=== PATIENT | male | born 1960 | race African-American/Black ===

== ENCOUNTER 2018-07-08 04:58 | Emergency (ER) | payer OTHER ==
--- NOTE | 2018-07-08 05:46 | PDOC ---
History of Present Illness - General Chief Complaint: Syncope/Near Syncope Stated Complaint: REHAB Time Seen by Provider: 07/08/18 05:12 History Source: Patient, EMS Exam Limitations: No Limitations - History of Present Illness Initial Comments: HPI: 58 y/o male BIBEMS to [facility] ER from outside of [facility]. EMS crew reports attempting to take the pt to [facility] but was refused by hospital security, who reported the pt was just forcibly discharged after urinating into the sink. Pt states he is from [place] and traveled to [place] for Detox at [facility] on urging from his parole office. Initially stated that he used heroin several days ago and methadone 2 days ago. Later, he endorsed using both heroin and methadone yesterday. On arrival, the pt requests methadone and a shot in knee for pain. States he was told he had a torn ligament at another hospital a few days ago. Was given knee brace. Three hospital wristbands in place. One from visit at unknown facility on 2018. Two bands from [facility] dated 07/07/2018. Social Hx: - EtoH: Last drank a few days ago - Tobacco: Daily smoker - Street Drugs: Heroin and Methadone Medical Hx: - Polysubstance abuse Review of Systems: In addition to that documented in the HPI above, the additional ROS was obtained : Constitutional: Denies fevers or chills ENMT: Denies sore throat CV: Denies chest pain Resp: Denies SOB GI: Denies vomiting or diarrhea : Denies dysuria, hematuria, or urinary frequency Physical Examination: Constitutional: Adult male in no acute distress or obvious discomfort. Found semi-fowlers on hospital bed. Alert and oriented x4. Answered all questions appropriately and completely. Speech was non-labored, non-pressured. Appeared sleepy during interview. Yawned several times. Head: Normocephalic. No obvious external signs of trauma. Eyes: PERRL. EOMI. Sclerae white. Conjunctiva moist and not injected. Ears: Hearing grossly intact. Nose: No nasal discharge. Neck: Supple, trachea is midline. Cardiovascular / Chest: Regular rate and regular rhythm. No murmur, rubs, clicks , or gallops. Peripheral pulses: radial pulses full. Respiratory: Breathing unlabored. Equal chest rise and fall. Clear to auscultation bilaterally. No stridor, no wheezing, no rhonchi. Gastrointestinal: abdomen is soft, non-tender, non-distended. Neuro: Alert and oriented. Moving all four extremities spontaneously. MSK: R knee tender along lateral aspect without grimace, rebound, or garding. Knee was immobilized with loose velcro wrap. Skin: Warm, dry, and intact. Psych: Affect: appropriate. Mood: normal. MDM: *Reviewed vital signs, nursing notes, and prior visit documentation (if available). 58 y/o male presenting from outside another hospital requesting methadone and knee injection. Endorses recent methadone ingestion and heroin abuse. Exact time unknown. States he is interested in pursuing opiate detox. Will obtain EKG , CBC, CMP, and UTox for medical clearance. Inverted T waves noted on EKG. No prior EKG available for comparison. Pt denies chest pain or SOB. Low suspicion for ACS. Will order troponin for further evaluation. Troponin negative. Low suspicion for ACS. Pt signed out to resident Dr. Young after he was verbally appraised of the pt s HPI, current ED course, and plan of management. Will f/u on pending UTox. Anticipate discharge to [facility] for inpatient detox. Pierre Estrella M.D., PGY1 Emergency Medicine Resident Past History - Past Medical History Allergies/Adverse Reactions: Allergies Allergy/AdvReac Type Severity Reaction Status Date / Time No Known Allergies Allergy Verified 07/08/18 05:18 Home Medications: Ambulatory Orders Ranitidine [Zantac -] 150 mg PO DAILY 11/08/13 metFORMIN HCL [Glucophage -] 500 mg PO BID 11/08/13 Anemia: No Asthma: No Cancer: No Cardiac Disorders: No CVA: No COPD: No CHF: No Dementia: No Diabetes: Yes GI Disorders: Yes Disorders: No HTN: No Hypercholesterolemia: No Kidney Stones: No Liver Disease: No Seizures: No Thyroid Disease: No - Surgical History Orthopedic Surgery: Yes (rotator cuff ) - Immunization History Immunization Up to Date: Yes - Suicide/Smoking/Psychosocial Hx Smoking History: Unknown if ever smoked Have you smoked in the past 12 months: Yes Number of Cigarettes Smoked Daily: 20 Cigars Per Day: 0 'Breaking Loose' booklet given: 11/07/13 Hx Alcohol Use: No Drug/Substance Use Hx: Yes (HEROIN) Substance Use Type: Alcohol Hx Substance Use Treatment: Yes *Physical Exam - Vital Signs Last Vital Signs Temp Pulse Resp BP Pulse Ox 98.2 F 83 17 132/53 L 95 07/08/18 05:19 07/08/18 05:19 07/08/18 05:19 07/08/18 05:19 07/08/18 05:19 ED Treatment Course - LABORATORY CBC & Chemistry Diagram: 07/08/18 05:45 07/08/18 05:45 *DC/Admit/Observation/Transfer Diagnosis at time of Disposition: Heroin abuse, Methadone use - Discharge Dispostion Condition at time of disposition: Stable - Referrals - Patient Instructions - Post Discharge Activity
[2018-07-08 05:57] LABS: BASO % 0.9 % (0-2.0); EOS % 3.6 % (0-4.5); HEMATOCRIT 32.6 % (35.4-49); HEMOGLOBIN 10.7 GM/dL (11.7-16.9); MCH 27.6 pg (25.7-33.7); MCHC 32.8 g/dl (32.0-35.9); MEAN CELL VOLUME 84.1 fl (80-96); MEAN PLT VOLUME 9.4 fl (7.5-11.1); MONO % 8.6 % (3.8-10.2); NEUT % 68.9 % (42.8-82.8); PLATELET COUNT 155 K/MM3 (134-434); RBC 3.87 M/mm3 (4.00-5.60); WHITE BLOOD COUNT 9.4 K/mm3 (4.0-10.0)
[2018-07-08 06:14] VITALS: BP 132/53; PULSE 83; TEMP 98.2; BMI 30.7
[2018-07-08 06:29] LABS: ALBUMIN 3.4 g/dl (3.4-5.0); ALK PHOS 58 U/L (45-117); ANION GAP 4 MMOL/L (8-16); BILIRUBIN,TOTAL 0.7 mg/dL (0.2-1); BLOOD UREA NITROGEN 18 mg/dL (7-18); CALCIUM 8.6 mg/dL (8.5-10.1); CHLORIDE 109 mmol/L (98-107); CO2 29 mmol/L (21-32); CREATININE 0.6 mg/dL (0.55-1.3); GLUCOSE,RANDOM 137 mg/dL (74-106); POTASSIUM 3.4 mmol/L (3.5-5.1); SGOT/AST 27 U/L (15-37); SGPT/ALT 21 U/L (13-61); SODIUM 142 mmol/L (136-145); TOT PROT 6.7 g/dl (6.4-8.2)
--- NOTE | 2018-07-08 06:48 | PDOC ---
Documentation entered by Rodriguez Wright SCRIBE, acting as scribe for Aline Garcia DO. Aline Garcia DO: This documentation has been prepared by the Kyle pablo Nirvannie, SCRIBE, under my direction and personally reviewed by me in its entirety. I confirm that the documentation accurately reflects all work, treatment, procedures, and medical decision making performed by me. Attending Attestation - Resident Resident Name: Pierre Estrella - ED Attending Attestation I have performed the following: I have examined & evaluated the patient, The case was reviewed & discussed with the resident, I agree w/resident's findings & plan - HPI HPI: 07/08/18 05:42 The patient is a 58 year old male, with a significant past medical history of Heroin Abuse, HTN, DM, Schizophrenia, and Depression, who presents to the emergency department with, right knee pain. While in the ED, patient requests Methadone and an injection to his right knee for a ? torn ligament (found on MRI at another hospital). Patient notes he wants to go to detox. He denies any recent fevers, chills, headache or dizziness. He denies any recent nausea, vomit, diarrhea or constipation. He denies any recent chest pain or shortness of breath. He denies any recent dysuria, frequency, urgency or hematuria. Allergies: NKDA - Physicial Exam PE: 07/08/18 05:42 Agree with resident exam. - Medical Decision Making 07/08/18 06:43 As such as follows 58-year-old male with a history of substance abuse requesting methadone and a cortisone injection for his knee Patient will be cleared and sent over to our [facility] for further evaluation Labs pending, signed out to dayshift
--- NOTE | 2018-07-08 07:06 | PDOC ---
*Physical Exam - Vital Signs Last Vital Signs Temp Pulse Resp BP Pulse Ox 98.2 F 83 17 132/53 L 95 07/08/18 05:19 07/08/18 05:19 07/08/18 05:19 07/08/18 05:19 07/08/18 05:19 ED Treatment Course - LABORATORY CBC & Chemistry Diagram: 07/08/18 05:45 07/08/18 05:45 - ADDITIONAL ORDERS Additional order review: Laboratory Results 07/08/18 05:45 Sodium 142 Potassium 3.4 L Chloride 109 H Carbon Dioxide 29 Anion Gap 4 L BUN 18 Creatinine 0.6 Est GFR (CKD-EPI)AfAm 129.36 Est GFR (CKD-EPI)NonAf 111.61 Random Glucose 137 H Calcium 8.6 Total Bilirubin 0.7 AST 27 ALT 21 Alkaline Phosphatase 58 Troponin I < 0.02 Total Protein 6.7 Albumin 3.4 Alcohol, Quantitative < 3.0 07/08/18 05:45 RBC 3.87 L MCV 84.1 MCHC 32.8 RDW 15.0 MPV 9.4 D Neutrophils % 68.9 D Lymphocytes % 18.0 D Monocytes % 8.6 Eosinophils % 3.6 Basophils % 0.9 Medical Decision Making - Medical Decision Making 07/08/18 07:05 Sign out received from Dr. Estrella. 07/08/18 08:[address] Coto at [facility], who has accepted the patient for detox. [facility] admissions called; they inform me that a detox bed is available. Will discharge patient to proceed to [facility] for detox. All questions concerns answered and addressed. Patient is in agreement with the plan. *DC/Admit/Observation/Transfer Diagnosis at time of Disposition: Heroin abuse, Methadone use, Use of cane as ambulatory aid - Discharge Dispostion [facility]position[facility] Condition at time of disposition: Stable Decision to Admit order: No - Referrals Referrals: [facility] Internal Med at [place] [Provider Group] - Patient Instructions Additional Instructions: You were seen in the emergency Department due to Heroin use. Proceed to [facility] for detox. We strongly advise that you abstain from heroin , or any other drug use. Follow the medication, and follow up recommendations of the physicians at [facility]. Follow up with your primary care physician within one- two days after discharge. A referral to [facility] has been provided. Return to the nearest Emergency Department if you experience worsening symptoms , subjective fevers, chills, shortness of breath, chest pain, palpitations, abdominal pain, nausea, vomiting, fall, loss of consciousness, any trauma. - Post Discharge Activity
--- NOTE | 2018-07-08 07:34 | PDOC ---
*Physical Exam - Vital Signs Last Vital Signs Temp Pulse Resp BP Pulse Ox 98.2 F 83 17 132/53 L 95 07/08/18 05:19 07/08/18 05:19 07/08/18 05:19 07/08/18 05:19 07/08/18 05:19 - Physical Exam Comments: 07/08/18 07:29 gen: sleeping, easily arousable, speaking in full clear sentences moving all extremities, neuro intact ED Treatment Course - LABORATORY CBC & Chemistry Diagram: 07/08/18 05:45 07/08/18 05:45 - ADDITIONAL ORDERS Additional order review: Laboratory Results 07/08/18 05:45 Sodium 142 Potassium 3.4 L Chloride 109 H Carbon Dioxide 29 Anion Gap 4 L BUN 18 Creatinine 0.6 Est GFR (CKD-EPI)AfAm 129.36 Est GFR (CKD-EPI)NonAf 111.61 Random Glucose 137 H Calcium 8.6 Total Bilirubin 0.7 AST 27 ALT 21 Alkaline Phosphatase 58 Troponin I < 0.02 Total Protein 6.7 Albumin 3.4 Alcohol, Quantitative < 3.0 07/08/18 05:45 RBC 3.87 L MCV 84.1 MCHC 32.8 RDW 15.0 MPV 9.4 D Neutrophils % 68.9 D Lymphocytes % 18.0 D Monocytes % 8.6 Eosinophils % 3.6 Basophils % 0.9 Medical Decision Making - Medical Decision Making 07/08/18 07:33 a/p: 58yo male sent for eval of poss syncope - pt states he wants detox for heroin use -denies passing out -states he was sleeping after using 2-3 bags of heroin -pt neuro intact -no signs of trauma -pt labs reivewed, etoh negative -uds pending -after uds, will call [facility] for detox -pt agrees with the plan -denies cp/sob, chavez -denies all somatic complaints this AM 07/08/18 08:10 pt has urinated ambulated with baseline gait, walks with a cane normally, does not have his cane , will give crutches for support, chronic knee pain, pending surgery resident discussed the case with [facility] who accepts pt over for eval. pt stable for dc to detox *DC/Admit/Observation/Transfer Diagnosis at time of Disposition: Heroin abuse, Methadone use, Use of cane as ambulatory aid - Discharge Dispostion Disposition: HOME Condition at time of disposition: Stable Decision to Admit order: No - Referrals - Patient Instructions - Post Discharge Activity
[2018-07-08 09:10] LABS: URINE AMPHETAMINES NEGATIVE ng/ml (CUTOFF=500); URINE BARBITURATES NEGATIVE ng/ml (CUTOFF=200); URINE BENZODIAZEPINES NEGATIVE ng/ml (CUTOFF=200)
[2018-07-08 09:27] LABS: COCAINE, UR POSITIVE ng/ml (CUTOFF=300); OPIATES, URI POSITIVE ng/ml (CUTOFF=300); PHENCYCLIDINE,URINE POSITIVE ng/ml (CUTOFF=25)
[2018-07-08 09:28] LABS: METHADONE, UR POSITIVE ng/ml (CUTOFF=300)
--- NOTE | 2018-07-08 10:45 | EKG ---
Test Reason : Blood Pressure : / mmHG Vent. Rate : 089 BPM Atrial Rate : 089 BPM P-R Int : 182 ms QRS Dur : 092 ms QT Int : 386 ms P-R-T Axes : 055 -15 052 degrees QTc Int : 469 ms NORMAL SINUS RHYTHM NONSPECIFIC T WAVE ABNORMALITY PROLONGED QT ABNORMAL ECG NO PREVIOUS ECGS AVAILABLE Confirmed by CADEN TINEO MD ([id number]) on 07/08/2018 10:45:17 AM Referred By: Confirmed By:CADEN TINEO MD
== END 2018-07-08 09:06 ==
LOC: JER 04:58
DX: F11.10 Opioid abuse, uncomplicated (principal); F11.20 Opioid dependence, uncomplicated; Z87.891 Personal history of nicotine dependence; E11.9 Type 2 diabetes mellitus without complications
CPT/HCPCS: 36415; 80053; 80307; 84484; 85025; 93005; 93010; 99283-25

== ENCOUNTER 2018-07-08 09:40 | Inpatient (IN) | payer OTHER ==
[2018-07-08 10:48] VITALS: BMI 30.4
--- NOTE | 2018-07-08 12:52 | HP ---
CIWA Score - Admission Criteria [facility] Guidelines: Admission for Medically Managed Detox: Requires at least one of the followin. CIWA greater than 12 2. Seizures within the past 24 hours 3. Delirium tremens within the past 24 hours 4. Hallucinations within the past 24 hours 5. Acute intervention needed for co occurring medical disorder 6. Acute intervention needed for co occurring psychiatric disorder 7. Severe withdrawal that cannot be handled at a lower level of care (continued vomiting, continued diarrhea, abnormal vital signs) requiring intravenous medication and/or fluids 8. Admission ROS S - HPI Chief Complaint: I am here for rehab from heroin,cocaine,alcohol,on mmtp 40 mgs/day Allergies/Adverse Reactions: Allergies Allergy/AdvReac Type Severity Reaction Status Date / Time No Known Allergies Allergy Verified 07/08/18 05:18 History of Present Illness: this 58 years old male with heroin,alcohol,cocaine dependence on methadone 40 mgs/day,last treatment 2017 [facility] hepatitis c treated type 2 dm non compliance torn ligament in right knee ambulation with cane and wearing immobilization crutches nicotine dependence 1 pack//day,would like to have nicotine patch and gum history of depression living in [facility] plan for rehab seen in er at [facility] ,had toxicology showed positive for opiate,methadone and cocaine fell in the parking in [place],no head injury,no injury noted Exam Limitations: No Limitations - Ebola screening Have you traveled outside of the country in the last 21 days: No (N) Have you had contact with anyone from an Ebola affected area: No Do you have a fever: No - Review of Systems Constitutional: No Symptoms Reported EENT: reports: No Symptoms Reported Respiratory: reports: No Symptoms reported Cardiac: reports: No Symptoms Reported GI: reports: No Symptoms Reported : reports: No Symptoms Reported Musculoskeletal: reports: No Symptoms Reported, Other (ambulation with cane) Integumentary: reports: No Symptoms Reported Neuro: reports: No Symptoms reported Endocrine: reports: No Symptoms Reported, Other (type 2 dm) Hematology: reports: No Symptoms Reported Psychiatric: reports: No Sypmtoms Reported, Judgement Intact, Mood/Affect Appropiate, Orientated x3, Depressed Other Systems: Reviewed and Negative Patient History - Patient Medical History Hx Anemia: No Hx Asthma: No Hx Chronic Obstructive Pulmonary Disease (COPD): No Hx Cancer: No Hx Cardiac Disorders: No Hx Congestive Heart Failure: No Hx Hypertension: No Hx Hypercholesterolemia: No Hx Pacemaker: No HX Cerebrovascular Accident: No Hx Seizures: No Hx Dementia: No Hx Diabetes: Yes (non compliance) Hx Gastrointestinal Disorders: Yes Hx Liver Disease: No Hx Genitourinary Disorders: No Hx Sexually Transmitted Disorders: No Hx Renal Disease (ESRD): No Hx Thyroid Disease: No Hx Human Immunodeficiency Virus (HIV): No (09/06 last negative) Hx Hepatitis C: No Hx Depression: No Hx Suicide Attempt: No Hx Bipolar Disorder: No Hx Schizophrenia: Yes Other Medical History: no suicidal,no homicidal - Patient Surgical History Past Surgical History: No Hx Orthopedic Surgery: Yes (rotator cuff ) Other Surgical History: history of torn ligament of right knee wearing knee immobilization and cane - PPD History Previous Implant?: Yes Implanted On Prior R Admission?: Yes Date: 11/10/13 PPD to be Administered?: Yes - Smoking Cessation Smoking history: Unknown if ever smoked Have you smoked in the past 12 months: Yes Aproximately how many cigarettes per day: 20 Cigars Per Day: 0 Hx Chewing Tobacco Use: No Initiated information on smoking cessation: Yes 'Breaking Loose' booklet given: 07/08/18 - Substance & Tx. History Hx Alcohol Use: Yes Hx Substance Use: Yes Substance Use Type: Alcohol, Cocaine, Heroin Hx Substance Use Treatment: Yes (last 2018 unknown facility) - Substances abused Heroin Substance route: Inhalation Frequency: Daily Amount used: 3 -5 bags Age of first use: 28 Date of last use: 07/05/18 Cocaine Substance route: Inhalation Frequency: Daily Amount used: 100$ Age of first use: 19 Date of last use: 07/07/18 Alcohol Substance route: Oral Frequency: 1-2 times per week Amount used: 1pint of bayron Age of first use: 19 Date of last use: 07/06/18 Family Disease History - Family Disease History Family Disease History: Other: Father (alcohol,), Mother (alcohol,alive) Admission Physical Exam S - Vital Signs Vital Signs: Vital Signs - 24 hr 07/08/18 10:37 Temperature 97.7 F Pulse Rate 74 Respiratory 20 Rate Blood Pressure 159/84 - Physical General Appearance: Yes: Within Normal Limits, No Apparent Distress HEENTM: Yes: Normal ENT Inspection, KEVIN, Pharynx Normal Respiratory: Yes: Within Normal Limits, Lungs Clear, Normal Breath Sounds Neck: Yes: Within Normal Limits Breast: Yes: Within Normal Limits Cardiology: Yes: Within Normal Limits, Regular Rhythm, Regular Rate, S1, S2 Abdominal: Yes: Within Normal Limits, Normal Bowel Sounds, Non Tender, Soft Genitourinary: Yes: Within Normal Limits Back: Yes: Muscle Spasm Musculoskeletal: Yes: Back pain Extremities: Yes: Within Normal Limits, Other (painin right knee) Neurological: Yes: regional safety manager II-XII NML intact, Motor Strength 5/5 Integumentary: Yes: Within Normal Limits Lymphatic: Yes: Within Normal Limits - Diagnostic (1) Heroin abuse Current Visit: No Status: Acute (2) Cocaine dependence Current Visit: No Status: Acute (3) Alcohol abuse Current Visit: No Status: Acute (4) DM2 (diabetes mellitus, type 2) Current Visit: No Status: Acute (5) Right anterior knee pain Current Visit: No Status: Acute (6) Contusion of right hand Current Visit: No Status: Acute (7) Methadone maintenance therapy patient Current Visit: No Status: Acute (8) Schizophrenia Current Visit: No Status: Acute (9) Syncope Current Visit: No Status: Acute (10) Use of cane as ambulatory aid Current Visit: No Status: Acute (11) Rotator cuff injury Current Visit: No Status: Acute (12) GERD (gastroesophageal reflux disease) Current Visit: No Status: Acute Cleared for Admission [facility] - Detox or Rehab Claeared for Rehab Admission: Yes Inpatient Rehab Admission - Rehab Decision to Admit Inpatient rehab admission?: Yes - Initial Determination Are CD services needed?: Yes Free of communicable disease: Yes Not in need of hospitalization: Yes - Rehab Admission Criteria Previous failed treatment: Yes Poor recovery environment: Yes Comorbidities: Yes Lacks judgement: No Patient is meeting Inpatient Rehab admission criteria:: Yes
[2018-07-08] MEDS ORDERED: P-EPHED 60MG/TRIPROLIDI 2.5MG TABLET PO PRN (13:14)
[2018-07-08] MEDS ORDERED: MAGNESIUM HYDROX 2400MG/30ML ORAL SUSPENSION 30 ML CUP PO PRN (13:14)
[2018-07-08] MEDS ORDERED: LOPERAMIDE HCL 2 MG CAPSULE PO PRN (13:14)
[2018-07-08] MEDS ORDERED: MENTHOL/PHENOL 1 EACH UD MM PRN (13:14)
[2018-07-08] MEDS ORDERED: NICOTINE POLACRILEX 2 MG GUM BUC PRN (13:14)
[2018-07-08] MEDS ORDERED: MAG HYDROX/AL HYDROX/SIMETH 30 ML UNIT-DOSE CUP PO PRN (13:14)
[2018-07-08] MEDS ORDERED: guaiFENesin 200 MG/10 ML 10 ML UNIT-DOSE CUPS PO PRN (13:14)
[2018-07-08] MEDS ORDERED: MAGNESIUM CITRATE 300 ML BOTTLE PO PRN (13:14)
[2018-07-08] MEDS ORDERED: hydrOXYzine PAMOATE 25 MG CAPSULE (FP) PO PRN (13:14)
[2018-07-08] MEDS ORDERED: METHADONE HCL 40 MG DISPERSABLE TABLET PO ONE (13:55)
[2018-07-08] MEDS: NICOTINE 21 MG/24 HOURS TOPICAL PATCH TD SCH (14:11)
[2018-07-08] MEDS: metFORMIN HCL 500 MG TABLET (FP) PO SCH (17:07)
[2018-07-08 19:52] LABS: EPI CELLS 2.4 /HPF (0-5/HPF); HYALINE CASTS 8 /lpf (0-8); URINE APPEARANCE TURBID; URINE BILIRUBIN 1+ (NEGATIVE); URINE COLOR DK YELLOW; URINE GLUCOSE (UA) NEGATIVE (NEGATIVE); URINE KETONE TRACE (NEGATIVE); URINE LEUK ESTERASE TRACE (NEGATIVE); URINE NITRITE NEGATIVE (NEGATIVE); URINE PROTEIN TRACE (NEGATIVE); URINE RBC 4 /hpf (0-4); URINE WBC 2 /hpf (0-5)
[2018-07-08] MEDS: THIAMINE HCL 100 MG TABLET (FP) PO SCH (21:43)
[2018-07-09] MEDS: METHADONE HCL 40 MG DISPERSABLE TABLET PO SCH (06:05)
[2018-07-09] MEDS: metFORMIN HCL 500 MG TABLET (FP) PO SCH ×2 (07:34→16:55)
[2018-07-09] MEDS: NICOTINE 21 MG/24 HOURS TOPICAL PATCH TD SCH (10:31)
[2018-07-09] MEDS: RANITIDINE HCL 150 MG TABLET (FP) PO SCH (10:31)
[2018-07-09] MEDS: PRENATAL VITAMINS W/ FOLIC ACID TABLET (FP) PO SCH (10:31)
[2018-07-09] MEDS: IBUPROFEN 400 MG TABLET (FP) PO PRN (10:32)
[2018-07-09 12:27] LABS: ALBUMIN 3.6 g/dl (3.4-5.0); BILIRUBIN,TOTAL 0.6 mg/dL (0.2-1); CALCIUM 8.9 mg/dL (8.5-10.1); CREATININE 0.6 mg/dL (0.55-1.3); POTASSIUM 3.9 mmol/L (3.5-5.1); TOT PROT 7.2 g/dl (6.4-8.2)
[2018-07-09 13:12] LABS: HEMATOCRIT 37.1 % (35.4-49); HEMOGLOBIN 11.9 GM/dL (11.7-16.9); MCH 27.3 pg (25.7-33.7); MEAN CELL VOLUME 85.3 fl (80-96); MEAN PLT VOLUME 10.1 fl (7.5-11.1); PLATELET COUNT 172 K/MM3 (134-434); RBC 4.35 M/mm3 (4.00-5.60); RDW 15.1 % (11.9-15.9); WHITE BLOOD COUNT 7.4 K/mm3 (4.0-10.0)
[2018-07-09] MEDS: ACETAMINOPHEN 325 MG TABLET (FP) PO PRN (14:10)
[2018-07-09] MEDS: FLUTICASONE PROP 0.05% 16 GM NASAL SPRAY NS SCH (16:55)
[2018-07-09] MEDS: THIAMINE HCL 100 MG TABLET (FP) PO SCH (21:45)
[2018-07-10] MEDS: METHADONE HCL 40 MG DISPERSABLE TABLET PO SCH (06:31)
[2018-07-10] MEDS: metFORMIN HCL 500 MG TABLET (FP) PO SCH ×2 (07:39→16:46)
[2018-07-10] MEDS: FLUTICASONE PROP 0.05% 16 GM NASAL SPRAY NS SCH (09:51)
[2018-07-10] MEDS: PRENATAL VITAMINS W/ FOLIC ACID TABLET (FP) PO SCH (09:51)
[2018-07-10] MEDS: NICOTINE 21 MG/24 HOURS TOPICAL PATCH TD SCH (09:51)
[2018-07-10] MEDS: RANITIDINE HCL 150 MG TABLET (FP) PO SCH (09:51)
[2018-07-10] MEDS: THIAMINE HCL 100 MG TABLET (FP) PO SCH (21:06)
[2018-07-10] MEDS: MELATONIN 5 MG TABLETS PO PRN (21:06)
[2018-07-10] MEDS: ACETAMINOPHEN 325 MG TABLET (FP) PO PRN (22:35)
[2018-07-11] MEDS: METHADONE HCL 40 MG DISPERSABLE TABLET PO SCH (06:37)
[2018-07-11] MEDS: metFORMIN HCL 500 MG TABLET (FP) PO SCH ×2 (06:40→16:44)
[2018-07-11] MEDS: PRENATAL VITAMINS W/ FOLIC ACID TABLET (FP) PO SCH (10:03)
[2018-07-11] MEDS: FLUTICASONE PROP 0.05% 16 GM NASAL SPRAY NS SCH (10:03)
[2018-07-11] MEDS: NICOTINE 21 MG/24 HOURS TOPICAL PATCH TD SCH (10:03)
[2018-07-11] MEDS: RANITIDINE HCL 150 MG TABLET (FP) PO SCH (10:03)
[2018-07-11] MEDS: MELATONIN 5 MG TABLETS PO PRN (21:30)
[2018-07-11] MEDS: THIAMINE HCL 100 MG TABLET (FP) PO SCH (21:30)
[2018-07-12] MEDS ORDERED: ALBUTEROL SO4 2.5/IPRATROPIUM 0.5 INH SOL 3 ML VIAL.NEB. NEB PRN (01:37)
--- NOTE | 2018-07-12 01:37 | PN ---
[facility] Progress Note Note: MD'S NOTE: CALLED AT ABOUT 1:00AM TO SEE THE PT. WHO IS C/O ONGOING SOB IN RECUMBENT POSTURE AND HIS RT. KNEE ARTHRITIS IS WORSENING WITH SWELLING BOTH LEGS. AWAITING FOR RT. KNEE REPLACEMENT HAVING MORE OTHER MEDICAL PROBLEMS. HE DOES NOT WANT TO GO TO THE ER HIS ROOM MATE CLAIMS THAT HE SNORES A LOT. SUB: HE DENIES CP, PALPITATIONS, N/V OBJ: THE PT. IS COHN X 3, NOT ANEMIC, NOT DYSPNEIC, NO CYANOSIS NOT IN DISTRESS. OBESITY+++. WALKING SLOWLY WITH A CANE AND IN WHEEL CHAIR V/S: 98.1F -18-77-139/75-PULSE OXY IS AT 98% ON R/A S/E: LUNGS: DECREASED BRONCHO-VESICULAR BREATH SOUNDS NO RALES, RHONCHI, NO WHEEZING CVS: -JVD, NL HEART SOUNDS, NO MURMURS ABD: SOFT, NT, FATTY ABD. WALL+++ B.S+ TONGUE: APPEARS TO BE SWOLLEN L/E: BOTH LOWER LIMBS: PITTING EDEMA++ R>L RT. KNEE: ONGOING SWELLING WITH LIMITED MOVEMENTS IMPRESSION: OBSTRUCTIVE SLEEP APNEA - MOST LIKELY OBESITY COPD PLANS: HCTZ 50 MGS. PO DAILY DUONEB Q4H PRN 02 AT 2-4 L/NC/MT WILL CONSIDER TRANSFERRING TO THE ER, IN THE EVENT OF WORSENING SIGNS AND SYMPTOMS. WILL F/U NEEDED PROVIDER: JOSE HERNANDEZ MD
[2018-07-12] MEDS: HYDROCHLOROTHIAZIDE 25 MG TABLET (FP) PO SCH ×3 (02:01→10:28)
[2018-07-12] MEDS: metFORMIN HCL 500 MG TABLET (FP) PO SCH ×2 (06:49→16:40)
[2018-07-12] MEDS: METHADONE HCL 40 MG DISPERSABLE TABLET PO SCH ×2 (07:19→10:03)
[2018-07-12] MEDS: FLUTICASONE PROP 0.05% 16 GM NASAL SPRAY NS SCH (10:25)
[2018-07-12] MEDS: RANITIDINE HCL 150 MG TABLET (FP) PO SCH (10:25)
[2018-07-12] MEDS: PRENATAL VITAMINS W/ FOLIC ACID TABLET (FP) PO SCH (10:25)
[2018-07-12] MEDS: NICOTINE 21 MG/24 HOURS TOPICAL PATCH TD SCH (10:25)
[2018-07-12] MEDS: THIAMINE HCL 100 MG TABLET (FP) PO SCH (21:05)
[2018-07-12] MEDS: MELATONIN 5 MG TABLETS PO PRN (21:05)
[2018-07-12] MEDS: IBUPROFEN 400 MG TABLET (FP) PO PRN (22:41)
[2018-07-13 07:19] VITALS: TEMP 97
[2018-07-13] MEDS: metFORMIN HCL 500 MG TABLET (FP) PO SCH (07:26)
[2018-07-13] MEDS: HYDROCHLOROTHIAZIDE 25 MG TABLET (FP) PO SCH (09:49)
[2018-07-13] MEDS: RANITIDINE HCL 150 MG TABLET (FP) PO SCH (09:49)
[2018-07-13] MEDS: METHADONE HCL 40 MG DISPERSABLE TABLET PO SCH (09:49)
[2018-07-13] MEDS: FLUTICASONE PROP 0.05% 16 GM NASAL SPRAY NS SCH (09:49)
[2018-07-13] MEDS: PRENATAL VITAMINS W/ FOLIC ACID TABLET (FP) PO SCH (09:49)
[2018-07-13] MEDS: NICOTINE 21 MG/24 HOURS TOPICAL PATCH TD SCH (09:50)
[2018-07-13 10:46] VITALS: BP 141/86; PULSE 75
--- NOTE | 2018-07-13 12:54 | PN ---
[facility] Progress Note Note: PATIENT REQUESTED TO SIGN OUT AMA STATING " YOU ARE ALL NICE. THIS PLACE JUST IS NOT FOR ME". PATIENT ENCOURAGED TO STAY IN TREATMENT TO PREVENT RELAPSE BUT REFUSED. PATIENT EXPLAINED ALL RISK FACTORS WITH SIGNING OUT AMA BUT CONTINUED WITH PROCESS. PATIENT ENCOURAGED TO ATTEND GROUP MEETINGS WITH NA/AA AND TO FOLLOW UP WITH PCP WITHIN ONE WEEK OF D/C TO CONTINUE MEDICAL MANAGEMENT. Vital Signs Temperature 97 F L 07/13/18 07:18 Pulse Rate 75 07/13/18 09:30 Respiratory Rate 18 07/13/18 09:30 Blood Pressure 141/86 07/13/18 09:30 O2 Sat by Pulse Oximetry (%) Laboratory Tests 07/08/18 07/08/18 07/08/18 10:04 14:00 17:06 WBC RBC Hgb Hct MCV MCH MCHC RDW Plt Count MPV Sodium Potassium Chloride Carbon Dioxide Anion Gap BUN Creatinine Est GFR (CKD-EPI)AfAm Est GFR (CKD-EPI)NonAf POC Glucometer 142 158 Random Glucose Calcium Total Bilirubin AST ALT Alkaline Phosphatase Total Protein Albumin Urine Color Dk yellow Urine Appearance Turbid Urine pH 6.0 Ur Specific [place] 1.035 Urine Protein Trace Urine Glucose (UA) Negative Urine Ketones Trace H Urine Blood Negative Urine Nitrite Negative Urine Bilirubin 1+ H Urine Urobilinogen 1.0 Ur Leukocyte Esterase Trace Urine WBC (Auto) 2 Urine RBC (Auto) 4 Urine Casts (Auto) 8 U Epithel Cells (Auto) 2.4 Urine Bacteria (Auto) 3.0 RPR Titer 07/09/18 07/09/18 07/09/18 06:05 08:40 08:40 WBC 7.4 RBC 4.35 Hgb 11.9 Hct 37.1 MCV 85.3 MCH 27.3 MCHC 32.0 RDW 15.1 Plt Count 172 MPV 10.1 Sodium 142 Potassium 3.9 Chloride 106 Carbon Dioxide 30 Anion Gap 7 L BUN 12 Creatinine 0.6 Est GFR (CKD-EPI)AfAm 129.36 Est GFR (CKD-EPI)NonAf 111.61 POC Glucometer 87 Random Glucose 98 Calcium 8.9 Total Bilirubin 0.6 AST 18 ALT 20 Alkaline Phosphatase 59 Total Protein 7.2 Albumin 3.6 Urine Color Urine Appearance Urine pH Ur Specific [place] Urine Protein Urine Glucose (UA) Urine Ketones Urine Blood Urine Nitrite Urine Bilirubin Urine Urobilinogen Ur Leukocyte Esterase Urine WBC (Auto) Urine RBC (Auto) Urine Casts (Auto) U Epithel Cells (Auto) Urine Bacteria (Auto) RPR Titer 07/09/18 07/09/18 07/10/18 08:40 16:54 06:30 WBC RBC Hgb Hct MCV MCH MCHC RDW Plt Count MPV Sodium Potassium Chloride Carbon Dioxide Anion Gap BUN Creatinine Est GFR (CKD-EPI)AfAm Est GFR (CKD-EPI)NonAf POC Glucometer 121 84 Random Glucose Calcium Total Bilirubin AST ALT Alkaline Phosphatase Total Protein Albumin Urine Color Urine Appearance Urine pH Ur Specific [place] Urine Protein Urine Glucose (UA) Urine Ketones Urine Blood Urine Nitrite Urine Bilirubin Urine Urobilinogen Ur Leukocyte Esterase Urine WBC (Auto) Urine RBC (Auto) Urine Casts (Auto) U Epithel Cells (Auto) Urine Bacteria (Auto) RPR Titer Nonreactive 07/10/18 07/11/18 07/11/18 16:44 06:38 16:45 WBC RBC Hgb Hct MCV MCH MCHC RDW Plt Count MPV Sodium Potassium Chloride Carbon Dioxide Anion Gap BUN Creatinine Est GFR (CKD-EPI)AfAm Est GFR (CKD-EPI)NonAf POC Glucometer 88 114 105 Random Glucose Calcium Total Bilirubin AST ALT Alkaline Phosphatase Total Protein Albumin Urine Color Urine Appearance Urine pH Ur Specific [place] Urine Protein Urine Glucose (UA) Urine Ketones Urine Blood Urine Nitrite Urine Bilirubin Urine Urobilinogen Ur Leukocyte Esterase Urine WBC (Auto) Urine RBC (Auto) Urine Casts (Auto) U Epithel Cells (Auto) Urine Bacteria (Auto) RPR Titer 07/12/18 07/12/18 07/13/18 06:48 17:54 06:52 WBC RBC Hgb Hct MCV MCH MCHC RDW Plt Count MPV Sodium Potassium Chloride Carbon Dioxide Anion Gap BUN Creatinine Est GFR (CKD-EPI)AfAm Est GFR (CKD-EPI)NonAf POC Glucometer 93 110 84 Random Glucose Calcium Total Bilirubin AST ALT Alkaline Phosphatase Total Protein Albumin Urine Color Urine Appearance Urine pH Ur Specific [place] Urine Protein Urine Glucose (UA) Urine Ketones Urine Blood Urine Nitrite Urine Bilirubin Urine Urobilinogen Ur Leukocyte Esterase Urine WBC (Auto) Urine RBC (Auto) Urine Casts (Auto) U Epithel Cells (Auto) Urine Bacteria (Auto) RPR Titer Home Medications Medication Instructions Recorded Hydrochlorothiazide [Hctz -] 50 mg PO DAILY #14 tablet 07/13/18 Ranitidine [Zantac -] 150 mg PO DAILY #30 tablet 07/13/18 metFORMIN HCL [Glucophage -] 500 mg PO BID #28 tablet 07/13/18
== END 2018-07-13 10:30 | disposition left against medical advice (07) | DRG 770 ==
LOC: YASAS 09:40 → Y3W 13:13
PROVIDERS: ADMIT Neuromusculoskeletal Medicine & OMM; ATTEND Neuromusculoskeletal Medicine & OMM
PROC: HZ42ZZZ Group Counseling for Substance Abuse Treatment, Cognitive-Behavioral (ICD-10-PCS; principal; 2018-07-08)
DX: F10.20 Alcohol dependence, uncomplicated (principal); F14.20 Cocaine dependence, uncomplicated; F11.20 Opioid dependence, uncomplicated; F17.210 Nicotine dependence, cigarettes, uncomplicated; F32.9 Major depressive disorder, single episode, unspecified; I10 Essential (primary) hypertension; K21.9 Gastro-esophageal reflux disease without esophagitis; J44.9 Chronic obstructive pulmonary disease, unspecified; E11.9 Type 2 diabetes mellitus without complications; Z79.84 Long term (current) use of oral hypoglycemic drugs; M17.11 Unilateral primary osteoarthritis, right knee; R26.89 Other abnormalities of gait and mobility; Z99.89 Dependence on other enabling machines and devices; R06.02 Shortness of breath
CPT/HCPCS: 36415; 80053; 80307; 81003; 82962; 84484; 85025; 85027; 86593; 93005; 93010; 99283-25